=== PATIENT | female | born 1960 | race Caucasian/White ===

== ENCOUNTER 2022-12-31 13:26 | Day surgery (SDC) | payer OTHER, SELFPAY ==
[2022-12-31 13:56] VITALS: BP 140/65; PULSE 73; RESP 17; TEMP 36.2; O2SAT 100; BMI 18.1
[2022-12-31] MEDS: Lactated Ringers 1,000 ML 15 ML IV (13:56)
--- NOTE | 2022-12-31 14:08 | HP.PCM_ITS ---
HPI - General General Date of Admission: 12/31/22 Date of Service: 12/31/22 Chief Complaint: Screening colonoscopy HPI Narrative COBY NEAL, is a 62 F who presents today for screening colonoscopy. She does not have abdominal pain. She denies any cramping. She denies any chest pain shortness of breath. She last week proximately 10 years ago and normal. Overall she is in very good health. [facility]LY [facility] Medical History Alcohol use Depression Family hx colonic polyps History of stress test Hx of fracture of ankle Leg cramps Restless legs Smoker Toenail fungus Wears dentures Wears glasses Home Medications terbinafine HCl 250 mg tablet 250 mg PO DAILY 12/04/22 [History Last Taken Unknown] Allergy/AdvReac Type Severity Reaction Status Date / Time No Known Allergies Allergy Verified 12/26/22 15:18 Family History (Updated 12/04/22 @ 10:15 by Heidi Cerda) Father Colon polyps Surgical History Hx of colonoscopy Hx of hysterectomy Social History (Updated 12/04/22 @ 10:16 by Heidi Cerda) household members: other details: current occupational status: employed Smoking Status: Current every day smoker tobacco type: cigarettes alcohol intake: current details: occasional substance use type: does not use ROS Review of Systems ROS Unobtainable: other Constitutional Constitutional: Denies fatigue, fever(s), poor appetite, weight gain or weight loss ENT HEENT: Denies mouth lesions Cardiovascular Cardiovascular: Denies abdominal bloating, abdominal edema or abdominal pain Respiratory/Chest Respiratory/Chest: Denies change in mental status, change in phlegm color, chest congestion or chest tightness Gastrointestinal Gastrointestinal: Denies belching, bloating, change in bowel habits, change in stool character, chewing difficulty, coffee ground emesis, constipation, cramping, diarrhea, dyspepsia, dysphagia, early satiety, excessive flatus, fecal incontinence, heartburn, hematemesis, hematochezia, hemorrhoids, loose stools, melena, nausea, odynophagia, rectal bleeding, tenesmus, vomiting or weight changes Genitourinary Genitourinary: Denies abdominal discomfort, burning urination or itching Musculoskeletal Musculoskeletal: Reports as per HPI; Denies muscle weakness or myalgias Integumentary Integumentary: Denies jaundice Neurologic Neurologic: Denies lack of coordination or weakness Psychiatric Psychiatric: Denies confusion, depression, memory loss, mood swings, paranoia or suicidal ideation Endocrine Endocrinology: Denies systems reviewed and no addt'l complaints, except as documented Hematologic/Lymphatic Hematologic/Lymphatic: Denies anemia, easy bleeding, easy bruising or lymphadenopathy Allergic/Immunologic Allergic/Immunologic: Denies systems reviewed and no addt'l complaints, except as documented Vital Signs Vital Signs Vital Signs: 12/31/22 13:56 12/31/22 13:56 Temperature 97.2 F L Temperature Source Temporal Pulse Rate 73 Respiratory Rate 17 Respiratory Pattern Normal Blood Pressure 140/65 H Blood Pressure Mean 90 Blood Pressure Source Monitor Blood Pressure Position Semi-Fowlers Blood Pressure Location Left Arm Pulse Ox 100 Oxygen Delivery Method Room Air Weight Weight: 112 lb 3.445 oz Body Mass Index (BMI) 18.1 Physical Exam Const alert General Appearance: cooperative Orientation / Consciousness: oriented to person HEENT hearing grossly normal bilaterally Head and Scalp: normal to inspection Face and Sinus: face symmetric Nose: external nose normal Mouth: oral and palatal mucosa normal Eyes conjunctivae normal General Eye: normal appearance of both eyes Neck full ROM General: normal visual inspection Lymph Lymphatic: no lymphadenopathy noted Chest inspection of chest normal and palpation of chest normal Chest: symmetrical chest wall rise Resp normal respiratory effort Effort and Inspection: able to speak in complete sentences Cardio regular rate GI non-distended Percussion: normal to percussion Rectal Exam: deferred Neuro Speech: speech normal Gait (Neuro): normal gait Assessment & Plan Assessment/Plan (1) Encounter for screening for malignant neoplasm of colon: PLAN: She was explained alternatives, risk, benefits include not withstanding bleeding, infection, sepsis, perforation, need for emergent surgery . She will have an ASA of 2.
--- NOTE | 2022-12-31 14:30 | COLBX_PTH ---
PATIENT: COBY NEAL LOC: EN U#:[id number] AGE/SX: 62/F ROOM: RE12/31/[address]: Dr. Emil Blair DO : 1960 BED: DIS: 12/31/2022 SPEC #: [id number] RECD: 01/01/23 08:10 STATUS: MAGED REArianne #: [id number] NITIN: 12/31/22 14:[address]: Emil Blair DEPT: SURGICAL PATHOLOGY RECD BY: Emma Ty ENTERED: 01/01/23 08:11 SP TYPE: COLON BX OTHR DR: Dr. Angelito Coleman MD Tissues: COLON BIOPSY Procedures: Surgery Specimen Level IV HEADER OPERATION: Colonoscopy, biopsy PRE-OP DIAGNOSIS: Screening TISSUE SUBMITTED: Splenic flexure polyps biopsy MICROSCOPIC DIAGNOSIS Splenic flexure polyps, biopsy: Fragments of benign colonic mucosa with focal hyperplastic change. AM:shyam 01/02/2023 MICROSCOPIC DESCRIPTION Slides are reviewed. GROSS DESCRIPTION Received in fixative is one container labeled with the patient's name and designated splenic flexure polyp. The specimen consists of two irregular fragments of light bassett soft tissue that in aggregate measure 0.8 x 0.6 x 0.1 cm. The specimen is totally submitted in one cassette. / AM:shyam 01/01/2023 TC:5 CPT: 14948
[2022-12-31 15:05] VITALS: BP 114/70; BP 140/65; PULSE 73; RESP 18; TEMP 36.1; O2SAT 100
--- NOTE | 2022-12-31 15:08 | OP.COLON_ITS ---
Patient Name: Yumiko Navarrete Procedure Date: 12/31/2022 2:39 PM Date of : 1960 Age: 62 Procedure: Colonoscopy Indications: Screening for colorectal malignant neoplasm Providers: Emil Blair DO Medicines: Monitored Anesthesia Care Patient Profile: This is a 62 year old female. Refer to note in patient chart for documentation of history and physical. Last Colonoscopy: more than 10 years ago. Complications: No immediate complications. Procedure: Pre-Anesthesia Assessment: - Prior to the procedure, a History and Physical was performed, and patient medications and allergies were reviewed. The patient is competent. The risks and benefits of the procedure and the sedation options and risks were discussed with the patient. All questions were answered and informed consent was obtained. Patient identification and proposed procedure were verified by the physician in the pre-procedure area. Mental Status Examination: alert and oriented. Airway Examination: normal oropharyngeal airway and neck mobility. Respiratory Examination: clear to auscultation. CV Examination: normal. Prophylactic Antibiotics: The patient does not require prophylactic antibiotics. Prior Anticoagulants: The patient has taken no anticoagulant or antiplatelet agents. ASA Grade Assessment: II - A patient with mild systemic disease. After reviewing the risks and benefits, the patient was deemed in satisfactory condition to undergo the procedure. The anesthesia plan was to use monitored anesthesia care (MAC). Immediately prior to administration of medications, the patient was re-assessed for adequacy to receive sedatives. The heart rate, respiratory rate, oxygen saturations, blood pressure, adequacy of pulmonary ventilation, and response to care were monitored throughout the procedure. The physical status of the patient was re-assessed after the procedure. After I obtained informed consent, the scope was passed under direct vision. Throughout the procedure, the patient's blood pressure, pulse, and oxygen saturations were monitored continuously. The Colonoscope was introduced through the anus and advanced to the cecum, identified by appendiceal orifice and ileocecal valve. The colonoscopy was performed without difficulty. The patient tolerated the procedure well. The quality of the bowel preparation was adequate. The ileocecal valve, appendiceal orifice, and rectum were photographed. Scope In: 2:47:22 PM Scope Withdrawal Time 0 hours 8 minutes 20 seconds Scope Out: 2:59:59 PM Total Procedure Duration Time 0 hours 12 minutes 37 seconds Findings: The perianal and digital rectal examinations were normal. Multiple small and large-mouthed diverticula were found in the recto-sigmoid colon and sigmoid colon. Two sessile polyps were found in the splenic flexure. The polyps were 1 to 2 mm in size. These polyps were removed with a cold snare. Resection and retrieval were complete. Verification of patient identification for the specimen was done. Estimated blood loss was minimal. The exam was otherwise without abnormality on direct and retroflexion views. Impression: - Diverticulosis in the recto-sigmoid colon and in the sigmoid colon. - Two 1 to 2 mm polyps at the splenic flexure, removed with a cold snare. Resected and retrieved. - The examination was otherwise normal on direct and retroflexion views. Recommendation: - Discharge patient to home. - Resume previous diet. - Continue present medications. - Await pathology results. - Repeat colonoscopy in 5 years for surveillance. Procedure Code(s): --- Professional --- 52950, Colonoscopy, flexible; with removal of tumor(s), polyp(s), or other lesion(s) by snare technique CPT copyright 2021 [employer]. All rights reserved. The codes documented in this report are preliminary and upon chief pharmacist review may be revised to meet current compliance requirements. Emil Blair DO 12/31/2022 3:07:44 PM This report has been signed electronically. Number of Addenda: 0 Note Initiated On: 12/31/2022 2:39 PM
--- NOTE | 2022-12-31 15:08 | OP.CCLET_ITS ---
12/31/2022 Angelito Coleman Md Re : Colonoscopy procedure for Yumiko Navarrete Dear Jared This procedure was performed on Saturday, December 31, 2022. My impressions and recommendations are as follows: Impressions : - Diverticulosis in the recto-sigmoid colon and in the sigmoid colon. - Two 1 to 2 mm polyps at the splenic flexure, removed with a cold snare. Resected and retrieved. - The examination was otherwise normal on direct and retroflexion views. Recommendations : - Discharge patient to home. - Resume previous diet. - Continue present medications. - Await pathology results. - Repeat colonoscopy in 5 years for surveillance. My findings are described in the full procedure note, which is enclosed. If I can be of further assistance, please feel free to contact me at . Sincerely, Emil Blair, 12/31/2022 3:07:44 PM This report has been signed electronically.
[2022-12-31 15:10] VITALS: BP 105/82; BP 140/65; PULSE 70; RESP 18; O2SAT 100
[2022-12-31 15:15] VITALS: BP 112/64; BP 140/65; PULSE 64; RESP 18; O2SAT 100
[2022-12-31 15:20] VITALS: BP 122/83; BP 140/65; PULSE 62; RESP 18; TEMP 36.2; O2SAT 100
[2022-12-31 15:50] VITALS: BP 140/65
== END 2022-12-31 15:51 | disposition home or self-care (01) ==
LOC: EN 13:29 → AC 13:30
PROVIDERS: PCP Family Medicine; Referring Provider Family Medicine; Visit Provider Internal Medicine Gastroenterology
PROC: 0DJD8ZZ Inspection of Lower Intestinal Tract, Via Natural or Artificial Opening Endoscopic (ICD-10-PCS; CPT 45378; principal; 2022-12-31 14:25)
DX: Z12.11 Encounter for screening for malignant neoplasm of colon (principal); D12.3 Benign neoplasm of transverse colon; K57.30 Diverticulosis of large intestine without perforation or abscess without bleeding; F17.210 Nicotine dependence, cigarettes, uncomplicated; Z83.719 Family history of colon polyps, unspecified
CPT/HCPCS: 45385; 88305; J7120; J2405